=== PATIENT | male | born 1980 | race Caucasian/White ===

== ENCOUNTER 2022-02-15 08:37 | Outpatient (CLI) | payer OTHER, SELFPAY ==
--- NOTE | 2022-02-15 11:30 | NEURO_ITS ---
Impression: # Complains of numbness of right foot dorsally. # Normal nerve conduction study. # Needle/EMG exam mildly neurogenic in right EHL and EDL. # Higher involvement needs to be ruled out. Nerve Conduction Studies Anti Sensory Summary Table Stim Site NR Peak (ms) P-T Amp (?V) Site1 Site2 Delta-P (ms) Dist (cm) Pelon (m/s) Right Sup Fibular Anti Sensory (Ant Lat Mall) 14 cm 3.4 13.4 14 cm Ant Lat Mall 3.4 16.0 47 Right Sural Anti Sensory (Lat Mall) Calf 3.3 15.0 Calf Lat Mall 3.3 16.0 48 Motor Summary Table Stim Site NR Onset (ms) O-P Amp (mV) Site1 Site2 Delta-0 (ms) Dist (cm) Pelon (m/s) Right Peroneal Motor (Vastus Med) Ankle 4.1 2.1 Popit Ankle 10.8 45.0 42 Popit 14.9 1.2 Right Tibial Motor (Abd Welch Brev) Ankle 4.4 1.5 Knee Ankle 10.3 47.0 46 Knee 14.7 1.2 F Wave Studies NR F-Lat (ms) L-R F-Lat (ms) Right Peroneal (Mrkrs) (EDB) 56.43 Right Tibial (Mrkrs) (Abd Hallucis) 55.48 EMG Side Muscle Nerve Root Ins Act Fibs Amp Dur Recrt Comment Right AntTibialis Dp Br Fibular L4-5 Nml Nml Nml Nml Nml Right Gastroc Tibial S1-2 Nml Nml Nml Nml Nml Right Fibularis Long Sup Br Fibular L5-S1 Nml Nml Nml Nml Nml Right Flex Dig Long Tibial L5-S2 Nml Nml Nml Nml Nml Right Ext Dig Brev Dp Br Fibular L5, S1 Nml Nml Nml Nml Nml Right ExtHallLong Dp Br Fibular L5, S1 Nml Nml Nml Nml Reduced Right Ext Dig Long Dp Br Fibular L5-S1 Nml Nml Nml Nml Reduced MTDD
== END 2022-02-15 08:38 | disposition home or self-care (01) ==
PROVIDERS: PCP Family Medicine; Visit Provider Family Medicine
DX: R20.0 Anesthesia of skin (principal)
CPT/HCPCS: 95886; 95908

== ENCOUNTER 2022-03-22 14:41 | Outpatient (CLI) | payer OTHER, SELFPAY ==
--- NOTE | ~2022-03-22 | MR_ITS ---
EXAMINATION: MR cervical spine wo/w con DATE: 03/22/2022 16:35 INDICATION: Right foot drop. TECHNIQUE: Magnetic resonance imaging (MRI) of the cervical spine was performed without and with 18 m L MultiHance intravenous contrast. COMPARISON: None FINDINGS: There is 8 degrees levocurvature of cervicothoracic spine. There is mild kyphosis of cervic al spine. There is mild chronic anterior wedging of C5 and C6 vertebral bodies. Intervertebral disc h eights are normal. The spinal cord signal intensity is normal. The following disc levels are specific ally discussed: C2-C3: The disc does not extend beyond the endplate margin. There is no uncovertebral joint osteoarth ritis. There is mild bilateral facet joint osteoarthritis. There is no neural foraminal stenosis. The re is no central canal stenosis. C3-C4 through C6-C7: The disc does not extend beyond the endplate margin. There is no uncovertebral j oint osteoarthritis. There is no facet joint osteoarthritis. There is no neural foraminal stenosis. T here is no central canal stenosis. C7-T1: The disc does not extend beyond the endplate margin. There is no uncovertebral joint osteoarth ritis. There is mild left facet joint osteoarthritis. There is no neural foraminal stenosis. There is no central canal stenosis. IMPRESSION: 1. Mild multilevel facet joint osteoarthritis. Reviewed, dictated and finalized at location A.
--- NOTE | ~2022-03-22 | MR_ITS ---
EXAMINATION: MR lumbar spine wo/w con DATE: 03/22/2022 16:36 INDICATION: Right foot drop. TECHNIQUE: Magnetic resonance imaging (MRI) of the lumbar spine was performed without and with 18 mL MultiHance intravenous contrast. COMPARISON: None FINDINGS: There is 5 degrees dextrocurvature of thoracolumbar spine. Vertebral body heights and inter vertebral disc heights are normal. The distal spinal cord signal intensity is normal. The conus medul riccardo is at L1. The following disc levels are specifically discussed: L1-L2: The disc does not extend beyond the endplate margin. There is mild bilateral facet joint osteo arthritis. There is no neural foraminal stenosis. There is no central canal stenosis. L2-L3: The disc does not extend beyond the endplate margin. There is mild bilateral facet joint osteo arthritis. There is no neural foraminal stenosis. There is no central canal stenosis. L3-L4: The disc does not extend beyond the endplate margin. There is mild bilateral facet joint osteo arthritis. There is no neural foraminal stenosis. There is no central canal stenosis. L4-L5: The disc does not extend beyond the endplate margin. There is mild left facet joint osteoarthr itis. There is no neural foraminal stenosis. There is no central canal stenosis. L5-S1: The disc does not extend beyond the endplate margin. There is mild bilateral facet joint osteo arthritis. There is no neural foraminal stenosis. There is no central canal stenosis. IMPRESSION: 1. Multilevel mild facet joint osteoarthritis. Reviewed, dictated and finalized at location A.
--- NOTE | ~2022-03-22 | MR_ITS ---
EXAMINATION: MR thoracic spine wo/w con DATE: 03/22/2022 16:35 INDICATION: Right foot drop. TECHNIQUE: Magnetic resonance imaging (MRI) of the thoracic spine was performed without and with 18 m L MultiHance intravenous contrast. COMPARISON: None FINDINGS: There is 14 degrees dextroscoliosis of thoracic spine. Vertebral body heights and intervert ebral disc heights are normal. The discs do not extend beyond the endplate margins. There is mild fac et joint osteoarthritis at a few levels. No neural foraminal stenosis or central canal stenosis. The spinal cord signal intensity is normal. IMPRESSION: 1. Thoracic dextroscoliosis. Reviewed, dictated and finalized at location A.
[2022-03-22 15:29] LABS: Estimated Glomerular Filt Rate > 60
== END 2022-03-22 14:42 | disposition home or self-care (01) ==
PROVIDERS: PCP Family Medicine; Visit Provider Psychiatry & Neurology Neurology
DX: M21.371 Foot drop, right foot (principal); M51.36 Other intervertebral disc degeneration, lumbar region; M50.30 Other cervical disc degeneration, unspecified cervical region
CPT/HCPCS: 72156; 72157; 72158; A9577